=== PATIENT | female | born 1995 | race Caucasian/White ===

== ENCOUNTER 2018-01-18 11:45 | Emergency (ER) | payer OTHER ==
[~2018-01-18] VITALS: Ht 160 cm; Wt 66.7 kg
== END 2018-01-18 15:27 | disposition home or self-care (01) ==
LOC: ER 11:45
DX: O20.0 Threatened abortion (principal)

== ENCOUNTER 2018-06-07 14:52 | Outpatient (CLI) | payer OTHER | END 2018-06-07 22:40 | disposition home or self-care (01) | LOC: EDBD 14:52 → OBS/DEL 14:52 | DX: O26.893 Other specified pregnancy related conditions, third trimester (principal); R10.2 Pelvic and perineal pain; Z34.83 Encounter for supervision of other normal pregnancy, third trimester ==

== ENCOUNTER 2018-06-09 22:07 | Inpatient (IN) | payer OTHER ==
[~2018-06-09] VITALS: Ht 160 cm; Wt 3.2 kg
[2018-06-09] MEDS ORDERED: PRENATABS RX T1 EACH PO (23:32)
== END 2018-06-12 15:55 | DRG 788 ==
LOC: OB/GYN 22:07 → LDR 22:07 → OB/GYN 06-10 23:32
PROVIDERS: ADMIT Obstetrics & Gynecology
PROC: 4A0HXFZ Measurement of Products of Conception, Cardiac Rhythm, External Approach (ICD-10-PCS; 2018-06-10)
PROC: 3E033VJ Introduction of Other Hormone into Peripheral Vein, Percutaneous Approach (ICD-10-PCS; 2018-06-10)
PROC: 10D00Z1 Extraction of Products of Conception, Low, Open Approach (ICD-10-PCS; principal; 2018-06-10 20:00)
DX: O82 Encounter for cesarean delivery without indication (principal); Z3A.38 38 weeks gestation of pregnancy; Z37.0 Single live birth